=== PATIENT | female | born 1975 | race Caucasian/White ===

== ENCOUNTER 2017-03-08 23:02 | Emergency (ER) | payer MEDICARE, MEDICAID ==
[2017-03-08 23:26] VITALS: BP 111/70
== END 2017-03-09 00:10 | disposition left against medical advice (07) ==
LOC: JP.ED 23:02
DX: Z53.21 Procedure and treatment not carried out due to patient leaving prior to being seen by health care provider (principal)

== ENCOUNTER 2017-04-20 09:58 | Emergency (ER) | payer MEDICARE, MEDICAID ==
[2017-04-20 10:37] VITALS: BP 132/70
[2017-04-20] MEDS ORDERED: Ondansetron 4 MG Tab.DIS PO ONE (10:51)
[2017-04-20] MEDS ORDERED: Ketorolac 60 MG/2 ML SDV IM ONE (10:51)
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
== END 2017-04-20 11:35 | disposition home or self-care (01) ==
LOC: JP.ED 09:58
DX: S70.01XA Contusion of right hip, initial encounter (principal); G44.1 Vascular headache, not elsewhere classified; F32.9 Major depressive disorder, single episode, unspecified; Z79.899 Other long term (current) drug therapy; Z88.8 Allergy status to other drugs, medicaments and biological substances; W01.0XXA Fall on same level from slipping, tripping and stumbling without subsequent striking against object, initial encounter
CPT/HCPCS: 96372; 99283; A9270; J1885

== ENCOUNTER 2017-09-02 10:38 | Emergency (ER) | payer MEDICARE, MEDICAID ==
[2017-09-02] MEDS ORDERED: Prochlorperazine 10 MG/2 ML SDV IV ONE (10:40)
[2017-09-02] MEDS ORDERED: Ketorolac 30 MG/ML SDV IVPUSH ONE (10:40)
[2017-09-02] MEDS ORDERED: diphenhydrAMINE 50 MG/ML SDV IVPUSH ONE (10:40)
[2017-09-02] MEDS ORDERED: Sodium Chloride 0.9% 1,000 ML IV ONE (10:40)
[2017-09-02] MEDS ORDERED: Prochlorperazine 10 MG/2 ML SDV ONE (11:55)
[2017-09-02] MEDS ORDERED: Ketorolac 30 MG/ML SDV ONE (11:55)
[2017-09-02] MEDS ORDERED: diphenhydrAMINE 50 MG/ML SDV ONE (11:55)
[2017-09-02 17:33] VITALS: BP 119/72
== END 2017-09-02 17:33 | disposition home or self-care (01) ==
LOC: JP.ED 10:38 → MERGE 10:38 → JP.ED 17:33
DX: G43.909 Migraine, unspecified, not intractable, without status migrainosus (principal); Z79.1 Long term (current) use of non-steroidal anti-inflammatories (NSAID); Z88.8 Allergy status to other drugs, medicaments and biological substances
CPT/HCPCS: 36415; 80048; 85025; 96361; 96374; 96375; 99284; J0780; J1200; J1885; J7040; 99283

== ENCOUNTER 2021-08-28 14:59 | Emergency (ER) | payer MEDICAID, MEDICARE, OTHER ==
[2021-08-28 15:22] VITALS: BP 130/68; PULSE 99
[2021-08-28] MEDS ORDERED: Ketorolac 30 MG/ML SDV IM ONE (15:33)
[2021-08-28] MEDS ORDERED: Ondansetron 4 MG Tab.DIS PO ONE (15:33)
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
== END 2021-08-28 16:31 | disposition home or self-care (01) ==
LOC: JP.ED 14:59
DX: S06.0X0A Concussion without loss of consciousness, initial encounter (principal); Z88.1 Allergy status to other antibiotic agents; W18.30XA Fall on same level, unspecified, initial encounter
CPT/HCPCS: 96372; 99283; A9270; J1885